=== PATIENT | female | born 1955 | race Hispanic/Latino ===

== ENCOUNTER 2019-08-16 20:53 | Emergency (ER) | payer OTHER ==
[2019-08-16] MEDS ORDERED: TETANUS & DIPHTHERIA TOX,ADULT 0.5 ML VIAL ONE (21:39)
[2019-08-16 22:01] LABS: Absolute Lymphocytes (CBC) 4.3 K/uL (0.7-4.9); Basophils % 0.8 % (0-1.3); Hematocrit 35.4 % (36.0-45.0); Lymphocytes % 42.7 % (15.3-44.8); MPV 9.6 fL (7.6-11.3); RBC Red Blood Cell Count 3.95 M/uL (3.86-4.86)
[2019-08-16 22:03] LABS: Protime INR 0.95
[2019-08-16 22:15] LABS: ALT/SGPT 22 U/L (12-78); AST/SGOT 18 U/L (15-37); Albumin 3.7 g/dL (3.4-5.0); Alkaline Phosphatase 86 U/L (45-117); BUN Blood Urea Nitrogen 20 mg/dL (7-18); Bicarbonate 24 mmol/L (21-32); Bilirubin Direct < 0.1 mg/dL (0-0.2); Bilirubin Total 0.4 mg/dL (0.2-1.0); Glucose Level 97 mg/dL (74-106); NT PRO-BNP 78 pg/mL (<125); Potassium 3.7 mmol/L (3.5-5.1); Protein, Total 7.9 g/dL (6.4-8.2); Sodium Level 136 mmol/L (136-145); Troponin (Emerg Dept Use Only) < 0.02 ng/mL (0.0-0.045)
[2019-08-16] MEDS ORDERED: MORPHINE 4 MG/ML SYR ONE (23:00)
[2019-08-16] MEDS ORDERED: ONDANSETRON 4 MG/2 ML VIAL ONE (23:00)
[2019-08-17] MEDS ORDERED: ONDANSETRON 4 MG/2 ML VIAL ONE (00:11)
[2019-08-17] MEDS ORDERED: MORPHINE 4 MG/ML SYR ONE (00:11)
[2019-08-17] MEDS ORDERED: FAMOTIDINE 20 MG/2 ML VIAL IV ONE (00:17)
--- NOTE | 2019-08-17 02:49 | ER ---
Nurse's Notes [facility] Name: Brandi Chavez Age: 64 yrs Sex: Female : 1955 Arrival Date: 08/16/2019 Time: 20:56 Bed 7 Private MD: Nereida Peck K Diagnosis: Bitten by nonvenomous snake Presentation: 08/15 21:14 Chief complaint: Patient states: she was bit by a snake in her garage approx 2009 bb tonight now her right lateral ankle is swollen, bruised and painful. Coronavirus screen: Proceed with normal triage. Ebola Screen: No symptoms or risks identified at this time. Initial Sepsis Screen: Does the patient meet any 2 criteria? No. Patient's initial sepsis screen is negative. Does the patient have a suspected source of infection? No. Patient's initial sepsis screen is negative. Risk Assessment: Do you want to hurt yourself or someone else? Patient reports no desire to harm self or others. Onset of symptoms was August 16, 2019. 21:14 Method Of Arrival: Ambulatory bb 21:14 Acuity: CHERIRE 2 bb 21:21 Care prior to arrival: None. Mechanism of Injury: snake bite. Trauma event details: bb Injury occurred in the [facility], Injury occurred: at home. Injury occurred: August 16, 2019 Injury occurred at: 20:10. Triage Assessment: 21:20 Bite description: bite sustained to right ankle by a snake, animal information: bb vaccination(s) is not applicable. Trauma Activation: Alert Physician: ED Physician; Name: Dr Burnett; Notified At: 21:15; Arrived At: 21:20 Physician: General Surgeon; Name: ; Notified At: 21:15; Arrived At: Physician: Radiology; Name: ; Notified At: 21:15; Arrived At: Physician: Respiratory; Name: ; Notified At: 21:15; Arrived At: Physician: Lab; Name: ; Notified At: 21:15; Arrived At: Historical: - Allergies: 21:20 No Known Allergies; bb - Home Meds: 21:20 None [Active]; bb - PMHx: 21:20 Meniere's Disease; Celiac disease; bb - PSHx: 21:20 Cholecystectomy; Ectopic ; bb - Immunization history:: Adult Immunizations up to date. - Social history:: Smoking status: Patient denies any tobacco usage or history of. - Immunization history: Last tetanus immunization: unknown. Screenin:21 Abuse screen: Denies threats or abuse. Tuberculosis screening: No symptoms or risk bb factors identified. 21:25 Nutritional screening: No deficits noted. Fall Risk None identified. bb Primary Survey: 21:21 NO uncontrolled hemorrhage observed. A: The patient is alert. Airway: patent. bb Breathing/Chest: Respiratory pattern: regular, Respiratory effort: spontaneous, unlabored. Circulation: Heart tones present. Disability Alert. Exposure/Environment: All clothing and personal items were removed. Forensic evidence collection is not deemed to be indicated at this time. Items placed in patient belonging bag. 22:30 Reassessment Breathing/Chest Respiratory pattern Regular Respiratory effort Spontaneous lp1 Unlabored. Secondary Survey: 21:40 HEENT: No deficits noted. Gastrointestinal: No deficits noted. : No signs and/or lp1 symptoms were reported regarding the genitourinary system. Musculoskeletal: Circulation, motion, and sensation intact. Capillary refill < 3 seconds, in right toes. Swelling present in right ankle. Assessment: 21:45 General: Appears in no apparent distress. Behavior is calm, cooperative, appropriate lp1 for age. Pain: Complains of pain in right ankle Pain currently is 6 out of 10 on a pain scale. Quality of pain is described as aching. Neuro: Level of Consciousness is awake, alert, obeys commands, Oriented to person, place, time, situation. EENT: No signs and/or symptoms were reported regarding the EENT system. Cardiovascular: Patient's skin is warm and dry. Pulses are palpable in right dorsalis pedis artery. Respiratory: Respiratory effort is even, unlabored. GI: No signs and/or symptoms were reported involving the gastrointestinal system. : No signs and/or symptoms were reported regarding the genitourinary system. Derm: Skin is healthy with good turgor, Skin is normal, Wound noted Other: Small puncture wound to lateral right ankle with bruising and swelling below site; Site marked with skin marker at this time Bruising that is dark purple, on right ankle. Musculoskeletal: Range of motion: intact in all extremities. 22:20 Reassessment: Patient appears in no apparent distress at this time. Patient is alert, lp1 oriented x 3, equal unlabored respirations, skin warm/dry/pink. No change in site at this time; Provider at bedside to discuss results and continued monitoring, patient demonstrates understanding. 08/16 00:00 Reassessment: Assisted patient to bathroom at this time; States epigastric burning, lp1 nausea; patient vomited while in bathroom; Provider notified, verbal order to administer Zofran 4 mg IV. 00:10 Reassessment: Verbal order from Provider for Pepcid 20 mg IV. lp1 00:10 Reassessment: Patient sitting up in stretcher for comfort, tolerating water; Site to lp1 right ankle unchanged from marked borders, continuing to monitor; Patient denies need for medication for pain at this time. 00:10 Cardiovascular: Pulses are palpable in right dorsalis pedis artery. lp1 01:00 Reassessment: Patient appears in no apparent distress at this time. No changes from lp1 previously documented assessment. 02:00 Reassessment: Patient is alert, oriented x 3, equal unlabored respirations, skin lp1 warm/dry/pink. Patient states nausea relief at this time; no further needs; No change to site at right foot, bruising within marked border. 03:10 Reassessment: Patient appears in no apparent distress at this time. No changes from jv1 previously documented assessment. Patient and/or family updated on plan of care and expected duration. Pain level reassessed. Patient is alert, oriented x 3, equal unlabored respirations, skin warm/dry/pink. Patient states feeling better. Vital Signs: 08/15 21:14 BP 136 / 88; Pulse 77; Resp 16 S; Temp 98.3(O); Pulse Ox 99% on R/A; Weight 58.06 kg bb (R); Height 5 ft. 2 in. (157.48 cm) (R); Pain 5/10; 22:00 BP 122 / 67; Pulse 72; Resp 20; Pulse Ox 100% on R/A; lp1 22:30 BP 137 / 64; Pulse 73; Resp 16; Pulse Ox 100% on R/A; lp1 23:00 BP 125 / 61; Pulse 72; Resp 16; Pulse Ox 98% on R/A; lp1 23:45 BP 124 / 65; Pulse 89; Resp 18; Pulse Ox 100% on R/A; lp1 08/16 01:00 BP 100 / 53; Pulse 76; Resp 16; Pulse Ox 98% on R/A; lp1 02:00 BP 106 / 60; Pulse 76; Resp 18; Temp 98; Pulse Ox 100% ; jv1 03:10 BP 112 / 56; Pulse 76; Resp 18; Temp 97.8; Pulse Ox 100% ; jv1 08/15 21:14 Body Mass Index 23.41 (58.06 kg, 157.48 cm) bb Thompson Coma Score: 08/15 21:21 Eye Response: spontaneous(4). Verbal Response: oriented(5). Motor Response: obeys bb commands(6). Total: 15. Trauma Score (Adult): 21:21 Eye Response: spontaneous(1); Verbal Response: oriented(1); Motor Response: obeys bb commands(2); Systolic BP: > 89 mm Hg(4); Respiratory Rate: 10 to 29 per min(4); Susan Score: 15; Trauma Score: 12 ED Course: 20:56 Patient arrived in ED. mr 20:56 Nereida Peck MD is Private Physician. mr 21:17 Triage completed. bb 21:17 Felipe Ponce PA is PHCP. [facility] 21:17 Shankar uBrnett MD is Attending Physician. [facility] 21:20 Arm band placed on Patient placed in an exam room, on a stretcher, on pulse oximetry. bb 21:21 Patient has correct armband on for positive identification. Bed in low position. Call bb light in reach. Side rails up X 1. 21:21 Patient maintains SpO2 saturation greater than 95% on room air. bb 21:25 Thermoregulation: warm blanket given to patient. bb 21:30 Inserted saline lock: 20 gauge in right antecubital area, using aseptic technique. ds4 Blood collected. 21:40 Clari Maxwell RN is Primary Nurse. lp1 08/16 02:15 Report given to JASIEL Meza. lp1 02:20 No provider procedures requiring assistance completed. lp1 03:16 IV discontinued, intact, bleeding controlled, No redness/swelling at site. Pressure jv1 dressing applied. 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 Exp: bb 06/22/2021. Lot #: [id number]. } Route: IM; Site: left deltoid; 22:30 Follow up: Response: No adverse reaction lp1 23:02 Drug: morphine 4 mg Route: IVP; Site: right antecubital; bb 23:45 Follow up: Response: Pain is decreased; RASS: Alert and Calm (0) lp1 23:02 Drug: Zofran (Ondansetron) 4 mg Route: IVP; Site: right antecubital; bb 23:45 Follow up: Response: No adverse reaction lp1 08/16 00:08 Drug: Zofran (Ondansetron) 4 mg Route: IVP; Site: right antecubital; lp1 01:00 Follow up: Response: Marked relief of symptoms; Nausea is decreased lp1 00:17 Drug: Pepcid 20 mg Route: IVP; Site: right antecubital; lp1 01:00 Follow up: Response: Marked relief of symptoms lp1 Intake: 08/15 21:21 PO: 0ml; Total: 0ml. bb Outcome: 08/16 02:49 Discharge ordered by . ma2 03:13 Discharged to home via wheelchair. jv1 03:13 Condition: good 03:13 Discharge instructions given to patient, Instructed on discharge instructions, follow up and referral plans. medication usage, Demonstrated understanding of instructions, follow-up care, medications, Prescriptions given X 1. 03:17 Patient's length of stay was not longer than 2 hours. jv1 03:17 Patient left the ED. jv1 Signatures: Felipe Ponce PA PA jmm Rivera, Mary mr Ballard, Brenda, RN RN bb Clari Maxwell RN RN lp1 Liu Cruz ds4 Shankar Burnett MD MD ma2 Domenica Mcgregor, JASIEL RN jv1 Corrections: (The following items were deleted from the chart) 00:27 00:10 Reassessment: Patient sitting up in stretcher for comfort, tolerating water; Site lp1 to right ankle unchanged from marked borders, continuing to monitor; Patient denies need for medication for pain at this time lp1 02:21 08/15 21:45 Derm: Wound noted Other: Small puncture wound to lateral right ankle with lp1 bruising and swelling below site; Site marked with skin marker at this time Bruising that is dark purple, on right ankle lp1
--- NOTE | 2019-08-17 02:49 | EDPHYS ---
Physician Documentation [facility] Name: Brandi Chavez Age: 64 yrs Sex: Female : 1955 Arrival Date: 08/16/2019 Time: 20:56 Bed 7 Private MD: Nereida Peck K ED Physician Shankar Burnett HPI: 08/15 21:23 This 64 yrs old Female presents to ER via Ambulatory with complaints of Snake jmm bite. 21:23 The patient was bitten on the right foot, by a snake, Onset: The symptoms/episode jmm began/occurred acutely. Animal information: is unknown, Patient/Caregiver unable to describe the snake. This is a 64 year old female with a history of mneieres that presents to the ED with complaints of right foot swelling following a snake bite which just occurred approx 1 hour ago. patient states this occurred when she walked in the garage. . Historical: - Allergies: 21:20 No Known Allergies; bb - Home Meds: 21:20 None [Active]; bb - PMHx: 21:20 Meniere's Disease; Celiac disease; bb - PSHx: 21:20 Cholecystectomy; Ectopic ; bb - Immunization history:: Adult Immunizations up to date. - Social history:: Smoking status: Patient denies any tobacco usage or history of. - Immunization history: Last tetanus immunization: unknown. ROS: 21:23 Constitutional: Negative for fever, chills, and weight loss, Cardiovascular: Negative jmm for chest pain, palpitations, and edema, Respiratory: Negative for shortness of breath, cough, wheezing, and pleuritic chest pain. 21:23 MS/extremity: Positive for pain. 21:23 All other systems are negative. Exam: 21:23 Constitutional: This is a well developed, well nourished patient who is awake, alert, jmm and in no acute distress. Head/Face: atraumatic. Eyes: EOMI, no conjunctival erythema appreciated ENT: Moist Mucus Membranes Neck: Trachea midline, Supple Chest/axilla: Normal chest wall appearance and motion. Cardiovascular: Regular rate and rhythm. No edema appreciated Respiratory: Normal respirations, no respiratory distress appreciated Abdomen/GI: Non distended, soft Back: Normal ROM 21:23 Skin: ecchymosis noted ot the right lateral foot. 21:23 Neuro: Orientation: is normal, Mentation: is normal, Memory: is normal. 21:23 Psych: Behavior/mood is pleasant, cooperative. 08/16 02:47 MS/ Extremity: swelling localized to right lateral ankle, Pulses equal, no cyanosis. ma2 Neurovascular intact. Full, normal range of motion. Neuro: Awake and alert, GCS 15, oriented to person, place, time, and situation. Cranial nerves II-XII grossly intact. Motor strength 5/5 in all extremities. Sensory grossly intact. Cerebellar exam normal. Normal gait. Vital Signs: 08/15 21:14 BP 136 / 88; Pulse 77; Resp 16 S; Temp 98.3(O); Pulse Ox 99% on R/A; Weight 58.06 kg bb (R); Height 5 ft. 2 in. (157.48 cm) (R); Pain 5/10; 22:00 BP 122 / 67; Pulse 72; Resp 20; Pulse Ox 100% on R/A; lp1 22:30 BP 137 / 64; Pulse 73; Resp 16; Pulse Ox 100% on R/A; lp1 23:00 BP 125 / 61; Pulse 72; Resp 16; Pulse Ox 98% on R/A; lp1 23:45 BP 124 / 65; Pulse 89; Resp 18; Pulse Ox 100% on R/A; lp1 04 01:00 BP 100 / 53; Pulse 76; Resp 16; Pulse Ox 98% on R/A; lp1 02:00 BP 106 / 60; Pulse 76; Resp 18; Temp 98; Pulse Ox 100% ; jv1 03:10 BP 112 / 56; Pulse 76; Resp 18; Temp 97.8; Pulse Ox 100% ; jv1 08/15 21:14 Body Mass Index 23.41 (58.06 kg, 157.48 cm) bb Susan Coma Score: 08/15 21:21 Eye Response: spontaneous(4). Verbal Response: oriented(5). Motor Response: obeys bb commands(6). Total: 15. Trauma Score (Adult): 21:21 Eye Response: spontaneous(1); Verbal Response: oriented(1); Motor Response: obeys bb commands(2); Systolic BP: > 89 mm Hg(4); Respiratory Rate: 10 to 29 per min(4); [place] Score: 15; Trauma Score: 12 MDM: 21:21 Patient medically screened. [facility] 08/16 02:05 Transition of care: After a detail discussion of the patient's case, care is [facility] transferred to Shankar Burnett MD. 02:47 Differential diagnosis: she was observed in er for 6 hrs, swelling is stable no, ma2 worsening, vs wnl, lab wnl. Data reviewed: vital signs, nurses notes, EMS record. Counseling: I had a detailed discussion with the patient and/or guardian regarding: the historical points, exam findings, and any diagnostic results supporting the discharge/admit diagnosis, the presence of at least one elevated blood pressure reading (>120/80) during this emergency department visit, radiology results, the need for outpatient follow up. Response to treatment: There is no appreciated change of the patient's symptoms at this time, the patient's symptoms have mildly improved after treatment. 02:50 ED course: no drug seeking per supervisor [facility]. ut2 08/15 21:22 Order name: Basic Metabolic Panel; Complete Time: 22:27 [facility] 08/15 21:22 Order name: CBC with Diff; Complete Time: 22: [facility] 08/15 21:22 Order name: LFT's; Complete Time: 22:27 [facility] 08/15 21:22 Order name: Magnesium; Complete Time: 22: [facility] 08/15 21:22 Order name: NT PRO-BNP; Complete Time: 22:27 [facility] 08/15 21:22 Order name: PT-INR; Complete Time: 22: [facility] 08/15 21:22 Order name: Troponin (emerg Dept Use Only); Complete Time: 22:27 [facility] 08/15 21:28 Order name: Fibrinogen; Complete Time: 22:27 [facility] 08/15 21:28 Order name: D-Dimer; Complete Time: 22:27 [facility] 08/15 21:22 Order name: EKG; Complete Time: 21: [facility] 08/15 21:22 Order name: Cardiac monitoring; Complete Time: 22:12 [facility] 08/15 21:22 Order name: EKG - Nurse/Tech; Complete Time: 22:12 [facility] 08/15 21:22 Order name: IV Saline Lock; Complete Time: 22:12 [facility] 08/15 21:22 Order name: Labs collected and sent; Complete Time: 22:12 [facility] 08/15 21:22 Order name: O2 Per Protocol; Complete Time: 21:33 [facility] 08/15 21:22 Order name: O2 Sat Monitoring; Complete Time: 21:33 [facility] Administered Medications: 08/15 21:39 Drug: Tetanus-Diphtheria Toxoid Adult 0.5 ml {Import Specialist: [employer]. Exp: bb 06/22/2021. Lot #: [id number]. } Route: IM; Site: left deltoid; 22:30 Follow up: Response: No adverse reaction lp1 23:02 Drug: morphine 4 mg Route: IVP; Site: right antecubital; bb 23:45 Follow up: Response: Pain is decreased; RASS: Alert and Calm (0) lp1 23:02 Drug: Zofran (Ondansetron) 4 mg Route: IVP; Site: right antecubital; bb 23:45 Follow up: Response: No adverse reaction lp1 08/16 00:08 Drug: Zofran (Ondansetron) 4 mg Route: IVP; Site: right antecubital; lp1 01:00 Follow up: Response: Marked relief of symptoms; Nausea is decreased lp1 00:17 Drug: Pepcid 20 mg Route: IVP; Site: right antecubital; lp1 01:00 Follow up: Response: Marked relief of symptoms lp1 Disposition: 02:50 Co-signature as Attending Physician, Shankar Burnett MD. Chart complete. ut2 Disposition: 08/17/19 02:49 Discharged to Home. Impression: Bitten by nonvenomous snake. - Condition is Stable. - Discharge Instructions: Snake Bite. - Prescriptions for Tylenol- Codeine #3 300-30 mg Oral Tablet - take 2 tablet by ORAL route every 6 hours As needed; 30 tablet. - Medication Reconciliation Form, Thank You Letter, Antibiotic Education, Prescription Opioid Use form. - Follow up: Private Physician; When: Tomorrow; Reason: Continuance of care. Signatures: Dispatcher [employer] EDFelipe Giles PA PA jmm Ballard, Brenda, RN RN bb Clari Maxwell RN RN lp1 Shankar Burnett MD MD ma2 Domenica Mcgregor RN RN jv1 Corrections: (The following items were deleted from the chart) 03:17 02:49 08/17/2019 02:49 Discharged to Home. Impression: Bitten by nonvenomous snake. jv1 Condition is Stable. Forms are Medication Reconciliation Form, Thank You Letter, Antibiotic Education, Prescription Opioid Use. Follow up: Private Physician; When: Tomorrow; Reason: Continuance of care. ma2
[2019-08-17 03:32] VITALS: O2SAT 100
[2019-08-17 03:34] VITALS: BP 112/56; TEMP 97.8
--- NOTE | 2019-08-17 07:35 | EKG ---
Test Date: 2019-08-16 Test Time: 22:05:38 Cnc Technician: LILY MEASUREMENT RESULTS: Intervals: Rate: 69 LA: 196 QRSD: 74 QT: 394 QTc: 422 [place]: P: 72 LA: 196 QRS: 41 T: 64 INTERPRETIVE STATEMENTS: Normal sinus rhythm Nonspecific T wave abnormality Abnormal ECG No previous ECG available for comparison Electronically Signed On 08-17-19 07:34:39 CDT by Teddy Morton
== END 2019-08-17 03:17 | disposition home or self-care (01) ==
LOC: ER 20:53
DX: T63.001A Toxic effect of unspecified snake venom, accidental (unintentional), initial encounter (principal); Y92.008 Other place in unspecified non-institutional (private) residence as the place of occurrence of the external cause; Z23 Encounter for immunization; H81.09 Meniere's disease, unspecified ear
CPT/HCPCS: 93005; 85025; 80048; 36415; 85384; 83735; 85610; 85379; 80076; 84484; 83880; 90471; 90714; 96375; 96374; 99284; J2405 ×2

== ENCOUNTER 2019-08-17 20:28 | Emergency (ER) | payer OTHER ==
[2019-08-17] MEDS ORDERED: FENTANYL CITR 100 MCG/2 ML ONE (20:59)
[2019-08-17] MEDS ORDERED: ONDANSETRON 4 MG/2 ML VIAL ONE (21:00)
--- NOTE | 2019-08-17 21:11 | EDPHYS ---
Physician Documentation [facility] Name: Brandi Chavez Age: 64 yrs Sex: Female : 1955 Arrival Date: 08/17/2019 Time: 20:30 Bed 26 Private MD: ED Physician Sky Salazar HPI: 08/16 20:40 This 64 yrs old Female presents to ER via Ambulatory with complaints of Leg jmm Swelling. 20:40 The patient presents with pain, that is acute, swelling. Onset: The symptoms/episode jmm began/occurred acutely, 1 day(s) ago. Modifying factors: The symptoms are alleviated by nothing. the symptoms are aggravated by nothing. Associated signs and symptoms: Pertinent positives: swelling, Pertinent negatives fever. This is a 64 year old female that presents to the ED with complaints of right leg swelling and pain beginning after a snake bite which occurred last night. Patient was initially evaluated in the ED. Patient was discharged with swelling localized to the foot. Patient states the leg began to swell to the level of the thigh. . Historical: - Allergies: 20:50 No Known Allergies; bb - Home Meds: 20:50 None [Active]; bb - PMHx: 20:50 Celiac Disease; Meniere's disease; bb - PSHx: 20:50 Cholecystectomy; Ectopic ; bb - Immunization history:: Adult Immunizations up to date, Last tetanus immunization: up to date. - Social history:: Smoking status: Patient denies any tobacco usage or history of. ROS: 20:40 Constitutional: Negative for fever, chills, and weight loss, Cardiovascular: Negative jmm for chest pain, palpitations, and edema, Respiratory: Negative for shortness of breath, cough, wheezing, and pleuritic chest pain. 20:40 MS/extremity: Positive for pain, swelling. 20:40 All other systems are negative. Exam: 20:40 Constitutional: This is a well developed, well nourished patient who is awake, alert, jmm and in no acute distress. Head/Face: atraumatic. Eyes: EOMI, no conjunctival erythema appreciated ENT: Moist Mucus Membranes Neck: Trachea midline, Supple Chest/axilla: Normal chest wall appearance and motion. Cardiovascular: Regular rate and rhythm. No edema appreciated Respiratory: Normal respirations, no respiratory distress appreciated Abdomen/GI: Non distended, soft Back: Normal ROM 20:40 Musculoskeletal/extremity: swelling noted to the right thigh, lower leg, ankle and foot, compartments are soft, full dorsalis pulse, NVI. 20:40 Skin: ecchymosis noted to the dorsum of the right foot. 20:40 Neuro: Orientation: is normal, Mentation: is normal, Memory: is normal. 20:40 Psych: Behavior/mood is pleasant, cooperative. Vital Signs: 20:45 BP 95 / 60; Pulse 94; Resp 18; Pulse Ox 98% on R/A; rv 20:47 BP 95 / 57; Pulse 96; Resp 16 S; Temp 98(O); Pulse Ox 98% on R/A; Weight 58.06 kg (R); bb Height 5 ft. 2 in. (157.48 cm) (R); Pain 5/10; 21:00 BP 93 / 65; Pulse 96; Resp 16; Pulse Ox 99% on R/A; rv 21:15 BP 96 / 61; Pulse 90; Resp 16; Pulse Ox 97% on R/A; rv 21:30 BP 102 / 60; Pulse 77; Resp 16; Pulse Ox 99% on R/A; rv 21:45 BP 105 / 58; Pulse 82; Resp 16; Temp 97.8(O); Pulse Ox 99% ; Pain 0/10; rv 21:59 Pain 0/10; rv 22:00 BP 104 / 56; Pulse 75; Resp 15; Pulse Ox 98% ; rv 22:30 BP 108 / 61; Pulse 76; Resp 16; Pulse Ox 99% on R/A; rv 23:00 BP 109 / 63; Pulse 78; Resp 16; Pulse Ox 99% on R/A; rv 20:47 Body Mass Index 23.41 (58.06 kg, 157.48 cm) bb MDM: 20:40 Patient medically screened. [facility] 21:10 Data reviewed: vital signs, nurses notes. Counseling: I had a detailed discussion with jose luis the patient and/or guardian regarding: the historical points, exam findings, and any diagnostic results supporting the discharge/admit diagnosis, the need to transfer to another facility. ED course: Due to continued swelling. Will transfer for snake bite care. I discussed the patient with Dr. Kan whom accepted transfer to [facility]. 08/16 20:41 Order name: Basic Metabolic Panel; Complete Time: 22:11 [facility] 08/16 20:41 Order name: CBC with Diff; Complete Time: 22:00 [facility] 08/16 20:41 Order name: LFT's; Complete Time: 22:11 [facility] 08/16 20:41 Order name: Magnesium; Complete Time: 22:11 [facility] 08/16 20:41 Order name: NT PRO-BNP; Complete Time: 22:11 [facility] 08/16 20:41 Order name: PT-INR; Complete Time: 22:11 [facility] 08/16 20:41 Order name: Troponin (emerg Dept Use Only); Complete Time: 22:11 [facility] 08/16 20:41 Order name: D-Dimer; Complete Time: 22:11 [facility] 08/16 20:41 Order name: Fibrinogen; Complete Time: 22:11 [facility] 08/16 22:39 Order name: US Extremity Venous Unilateral Ltd [facility] 08/16 20:41 Order name: EKG; Complete Time: 20:43 [facility] 08/16 20:41 Order name: Cardiac monitoring; Complete Time: 21:16 [facility] 08/16 20:41 Order name: EKG - Nurse/Tech; Complete Time: 21:16 [facility] 08/16 20:41 Order name: IV Saline Lock; Complete Time: 21:16 [facility] 08/16 20:41 Order name: Labs collected and sent; Complete Time: 21:16 [facility] 08/16 20:41 Order name: O2 Per Protocol; Complete Time: 21:16 [facility] 08/16 20:41 Order name: O2 Sat Monitoring; Complete Time: 21:16 jm Administered Medications: 21:16 Drug: Zofran (Ondansetron) 4 mg Route: IVP; Site: left antecubital; rv 21:59 Follow up: Response: No adverse reaction rv 21:17 Drug: fentaNYL (PF) 50 mcg Route: IVP; Site: left antecubital; rv 21:59 Follow up: Pain 0/10 Adult; Response: No adverse reaction; Marked relief of symptoms; rv Pain is decreased; RASS: Alert and Calm (0) 21:19 Drug: NS 0.9% 1000 ml Route: IV; Rate: 1 bolus; Site: left antecubital; rv 23:11 Follow up: IV Status: Completed infusion rv 21:37 Drug: CroFab 4 vials Route: IV; Rate: calculated rate; Site: left antecubital; rv 21:59 Follow up: Response: No adverse reaction rv 22:45 Follow up: IV Status: Completed infusion; IV Intake: 250ml rv 23:12 Drug: CroFab 4 vials Route: IV; Rate: calculated rate; Site: left antecubital; rv 23:13 Follow up: IV Status: Infusion continued upon transfer rv 23:18 CANCELLED (Duplicate Order): CroFab 4 vials IV at calculated rate once; may repeat at rv >=1 hour intervals until initial control of symptoms Disposition: 08/17/19 21:11 Transfer ordered to [facility]. Diagnosis are Edema, unspecified, Toxic effect of snake venom. - Reason for transfer: Higher level of care. - Accepting physician is Dr. Kan. - Condition is Stable. - Problem is new. - Symptoms have worsened. Addendum: 08/20/2019 07:39 Co-signature as Attending Physician, Sky Salazar MD I agree with the assessment and c soto plan of care. Signatures: Dispatcher [employer] EDMS Sky Salazar MD MD cha Mickail, Joel, PA PA Nerissa Rainey, RN RN bb Anthony Mcgregor, RN RN rv Corrections: (The following items were deleted from the chart) 08/16 23:17 21:11 08/17/2019 21:11 Transfer ordered to [facility]. Diagnosis is Edema, rv unspecified; Toxic effect of snake venom. Reason for transfer: Higher level of care. Accepting physician is Dr. Kan. Condition is Stable. Problem is new. Symptoms have worsened. jose luis
--- NOTE | 2019-08-17 21:11 | ER ---
Nurse's Notes [facility] Name: Brandi Chavez Age: 64 yrs Sex: Female : 1955 Arrival Date: 08/17/2019 Time: 20:30 Bed 26 Private MD: Diagnosis: Edema, unspecified;Toxic effect of snake venom Presentation: 08/16 20:47 Chief complaint: Patient states: she was seen here yesterday for snake-bite to right bb lateral ankle and discharged home but today her leg is swollen up past her thigh and is painful. Coronavirus screen: Proceed with normal triage. Ebola Screen: No symptoms or risks identified at this time. Initial Sepsis Screen: Does the patient meet any 2 criteria? No. Patient's initial sepsis screen is negative. Does the patient have a suspected source of infection? No. Patient's initial sepsis screen is negative. Risk Assessment: Do you want to hurt yourself or someone else? Patient reports no desire to harm self or others. Onset of symptoms was August 16, 2019. 20:47 Method Of Arrival: Ambulatory bb 20:47 Acuity: CHERRIE 2 bb Historical: - Allergies: 20:50 No Known Allergies; bb - Home Meds: 20:50 None [Active]; bb - PMHx: 20:50 Celiac Disease; Meniere's disease; bb - PSHx: 20:50 Cholecystectomy; Ectopic ; bb - Immunization history:: Adult Immunizations up to date, Last tetanus immunization: up to date. - Social history:: Smoking status: Patient denies any tobacco usage or history of. Screenin:15 Abuse screen: Denies threats or abuse. Denies injuries from another. Nutritional rv screening: No deficits noted. Tuberculosis screening: No symptoms or risk factors identified. Fall Risk None identified. Assessment: 21:00 General: Appears in no apparent distress. Behavior is calm, cooperative. rv 21:00 Pain: Complains of pain in right leg Pain currently is 5 out of 10 on a pain scale. rv Neuro: Level of Consciousness is awake, alert, obeys commands, Oriented to person, place, time, situation. Cardiovascular: Patient's skin is warm and dry. Rhythm is regular. Respiratory: Airway is patent Respiratory effort is even, unlabored. Derm: Bruising that is dark purple, on lateral aspect of right foot. Musculoskeletal: Swelling present in right leg. 23:13 Reassessment: PATIENT'S VITAL SIGNS ARE STABLE. COMPLAINING OF PAIN BUT REFUSED PAIN rv MEDICATION PRIOR TO TRANSFER. SECOND BAG OF CROFAB STARTED BEFORE TRANSFER. ULTRASOUND DONE AT BEDSIDE, NEGATIVE FOR DVT. GCS 15 WITH IV INFUSING WELL. Reassessment: SHOW NO SIGNS OF REACTION FROM THE CROFAB. Vital Signs: 20:45 BP 95 / 60; Pulse 94; Resp 18; Pulse Ox 98% on R/A; rv 20:47 BP 95 / 57; Pulse 96; Resp 16 S; Temp 98(O); Pulse Ox 98% on R/A; Weight 58.06 kg (R); bb Height 5 ft. 2 in. (157.48 cm) (R); Pain 5/10; 21:00 BP 93 / 65; Pulse 96; Resp 16; Pulse Ox 99% on R/A; rv 21:15 BP 96 / 61; Pulse 90; Resp 16; Pulse Ox 97% on R/A; rv 21:30 BP 102 / 60; Pulse 77; Resp 16; Pulse Ox 99% on R/A; rv 21:45 BP 105 / 58; Pulse 82; Resp 16; Temp 97.8(O); Pulse Ox 99% ; Pain 0/10; rv 21:59 Pain 0/10; rv 22:00 BP 104 / 56; Pulse 75; Resp 15; Pulse Ox 98% ; rv 22:30 BP 108 / 61; Pulse 76; Resp 16; Pulse Ox 99% on R/A; rv 23:00 BP 109 / 63; Pulse 78; Resp 16; Pulse Ox 99% on R/A; rv 20:47 Body Mass Index 23.41 (58.06 kg, 157.48 cm) bb ED Course: 20:30 Patient arrived in ED. ds1 20:40 Felipe Ponce PA is PHCP. jmm 20:40 Sky Salazar MD is Attending Physician. jmm 20:50 Triage completed. bb 20:50 Anthony Mcgregor, JASIEL is Primary Nurse. rv 20:50 Arm band placed on Patient placed in an exam room, on a stretcher, on pulse oximetry. bb 21:00 Patient has correct armband on for positive identification. Call light in reach. Side rv rails up X 1. 21:00 inspector toys on. Pulse ox on. NIBP on. rv 21:15 Inserted saline lock: 20 gauge in left antecubital area, using aseptic technique. Blood rv collected. 21:15 Initial lab(s) drawn, by me, sent to lab. rv 23:15 No provider procedures requiring assistance completed. IV is patent, with fluids rv infusing freely, with good blood return, Patient transferred, IV remains in place. 23:19 US Extremity Venous Unilateral Ltd In Process Unspecified. EDMS Administered Medications: 21:16 Drug: Zofran (Ondansetron) 4 mg Route: IVP; Site: left antecubital; rv 21:59 Follow up: Response: No adverse reaction rv 21:17 Drug: fentaNYL (PF) 50 mcg Route: IVP; Site: left antecubital; rv 21:59 Follow up: Pain 0/10 Adult; Response: No adverse reaction; Marked relief of symptoms; rv Pain is decreased; RASS: Alert and Calm (0) 21:19 Drug: NS 0.9% 1000 ml Route: IV; Rate: 1 bolus; Site: left antecubital; rv 23:11 Follow up: IV Status: Completed infusion rv 21:37 Drug: CroFab 4 vials Route: IV; Rate: calculated rate; Site: left antecubital; rv 21:59 Follow up: Response: No adverse reaction rv 22:45 Follow up: IV Status: Completed infusion; IV Intake: 250ml rv 23:12 Drug: CroFab 4 vials Route: IV; Rate: calculated rate; Site: left antecubital; rv 23:13 Follow up: IV Status: Infusion continued upon transfer rv 23:18 CANCELLED (Duplicate Order): CroFab 4 vials IV at calculated rate once; may repeat at rv >=1 hour intervals until initial control of symptoms Intake: 22:45 IV: 250ml; Total: 250ml. rv Outcome: 21:11 ER care complete, transfer ordered by MD. caldera 23:16 Transferred by ground EMS to [facility], Transfer form completed. X-rays sent rv w/ patient. 23:16 Condition: stable 23:16 Discharge instructions given to patient, Instructed on the need for transfer, Demonstrated understanding of instructions. 23:17 Patient left the ED. rv Signatures: Dispatcher [employer] EDMS Felipe Ponce PA PA jmm Sanford, Demi dsNerissa Alcala, RN RN bb Anthony Mcgregor, RN RN rv
[2019-08-17] MEDS ORDERED: NA CHLORIDE 0.9% 1,000 ML ONE (21:23)
[2019-08-17 21:28] LABS: Absolute Lymphocytes (CBC) 1.9 K/uL (0.7-4.9); Basophils % 0.4 % (0-1.3); Hematocrit 43.6 % (36.0-45.0); MPV 9.7 fL (7.6-11.3); RBC Red Blood Cell Count 4.82 M/uL (3.86-4.86)
[2019-08-17] MEDS ORDERED: CROTALIDAE ANTIVENIM 1 GM VIAL IV ONE ×2 (21:33→22:46)
[2019-08-17] MEDS ORDERED: NA CHLORIDE 0.9% 250 ML ONE ×2 (21:33→22:46)
[2019-08-17 21:53] LABS: ALT/SGPT 703 U/L (12-78); Albumin 3.7 g/dL (3.4-5.0); Alkaline Phosphatase 167 U/L (45-117); BUN Blood Urea Nitrogen 14 mg/dL (7-18); Bicarbonate 26 mmol/L (21-32); Bilirubin Direct 0.9 mg/dL (0-0.2); Bilirubin Total 2.8 mg/dL (0.2-1.0); Glucose Level 111 mg/dL (74-106); Magnesium 2.1 mg/dL (1.8-2.4); NT PRO-BNP 76 pg/mL (<125); Potassium 3.8 mmol/L (3.5-5.1); Protein, Total 7.7 g/dL (6.4-8.2); Sodium Level 138 mmol/L (136-145); Troponin (Emerg Dept Use Only) < 0.02 ng/mL (0.0-0.045)
[2019-08-17 21:58] LABS: AST/SGOT 759 U/L (15-37); Protime INR 1.06
[2019-08-17 23:30] VITALS: TEMP 97.8
[2019-08-17 23:33] VITALS: O2SAT 99
[2019-08-17 23:35] VITALS: BP 109/63
--- NOTE | 2019-08-18 07:59 | EKG ---
Test Date: 2019-08-17 Test Time: 21:10:19 Barrel Endshake Adjuster: JOSÉ MIGUEL MEASUREMENT RESULTS: Intervals: Rate: 92 AZ: 146 QRSD: 72 QT: 344 QTc: 425 Vista: P: 67 AZ: 146 QRS: 48 T: 70 INTERPRETIVE STATEMENTS: Normal sinus rhythm Nonspecific T wave abnormality Abnormal ECG Compared to ECG 08/16/2019 22:05:38 No significant changes Electronically Signed On 08-18-19 07:58:31 CDT by Teddy Morton
--- NOTE | 2019-08-18 12:25 | RAD REPORT ---
EXAM DESCRIPTION: US - Extremity Venous Uni Ltd - 08/17/2019 11:19 pm CLINICAL HISTORY: 64 years Female SWELLING Extremity Venous Uni Ltd COMPARISON: None TECHNIQUE: Real-time and Doppler sonography of the deep venous system of the right lower extremity was performed . FINDINGS: No intraluminal thrombus is seen at any level. Satisfactory compressibility and augmentati on all levels. No popliteal cyst. IMPRESSION: Negative study. No sonographic evidence for deep venous thrombosis involving the right l ower extremity. Electronically signed by: Nereida Vuong MD 08/17/2019 11:37 PM CDT Due to temporary technical issues with the PACS/Fluency reporting system, reports are being signed by the in house radiologist as a courtesy to ensure prompt reporting. The interpreting radiologist is f ully responsible for the content of the report.
== END 2019-08-17 23:17 | disposition short-term general hospital (02) ==
LOC: ER 20:28
DX: R60.9 Edema, unspecified (principal); T63.001A Toxic effect of unspecified snake venom, accidental (unintentional), initial encounter; Y92.008 Other place in unspecified non-institutional (private) residence as the place of occurrence of the external cause; H81.09 Meniere's disease, unspecified ear
CPT/HCPCS: 96365; 96361; 93005; 85025; 80048; 36415; 85384; 83735; 85610; 85379; 80076; 84484; 83880; 93971; 96375; 99285; J0840 ×2; J3010; J7030 ×3; J2405

== ENCOUNTER 2023-04-18 09:19 | Day surgery (SDC) | payer OTHER ==
[2023-04-18] MEDS ORDERED: CEFAZOLIN SODIUM 1 GM/VIAL ONE (10:00)
[2023-04-18] MEDS ORDERED: Ringers Lactate 1,000 ML IV ONE (10:00)
--- NOTE | 2023-04-18 10:52 | RAD REPORT ---
EXAM DESCRIPTION: RAD - Chest Pa And Lat (2 Views) - 04/18/2023 10:18 am CLINICAL HISTORY: SDS RM 5. Hypertension COMPARISON: No comparisons TECHNIQUE: PA and lateral views of the chest were obtained. FINDINGS: The lungs are clear. Heart size is normal and central vasculature is within normal limits. No pleural effusion or pneumothorax seen. No acute bony finding noted. IMPRESSION: No acute cardiopulmonary process.
[2023-04-18 10:58] LABS: Absolute Lymphocytes (CBC) 3.1 K/uL (0.7-4.9); Hematocrit 37.3 % (36.0-45.0); Lymphocytes % 31.3 % (15.3-44.8); MPV 7.7 fL (7.6-11.3); Platelets 375 thou/uL (152-406); RBC Red Blood Cell Count 4.19 M/uL (3.86-4.86)
[2023-04-18] MEDS ORDERED: MIDAZOLAM HCL 2 MG/2 ML INJ ONE (11:01)
[2023-04-18] MEDS ORDERED: LIDOCAINE 2% MPF 5 ML VIAL ONE (11:01)
[2023-04-18] MEDS ORDERED: propofoL 200 MG/20 ML VIAL IV ONE (11:01)
[2023-04-18] MEDS ORDERED: ONDANSETRON 4 MG/2 ML VIAL ONE ×3 (11:01→12:56)
[2023-04-18] MEDS ORDERED: FENTANYL CITR 100 MCG/2 ML ONE (11:01)
[2023-04-18] MEDS ORDERED: HYDROMORPHONE HCL 1 MG/ML INJ ONE (11:05)
[2023-04-18 11:07] LABS: Protime INR 1.07
[2023-04-18 11:15] LABS: Potassium 3.7 mEq/L (3.5-5.1)
[2023-04-18] MEDS ORDERED: dexAMETHasone 10 MG/ML VIAL ONE (11:28)
[2023-04-18] MEDS ORDERED: EPHEDRINE SULF 50 MG/ML VIAL ONE (11:31)
--- NOTE | 2023-04-18 12:54 | P.BOP ---
Preoperative diagnosis: left patella fracture Postoperative diagnosis: same Primary procedure: ORIF left patella fracture Deckhand Engineer: NONE,NONE Estimated blood loss: 10 cc Specimen: none Findings: see dictation Anesthesia: General Complications: None Implants: 1.6 mm K-wire x 2, 20 gauge sternal wire Fluids & blood products: per anesthesia record; TT: 54 mins @ 300 mmHg Transferred to: Recovery Room Condition: Good
[2023-04-18] MEDS: HYDROMORPHONE HCL 1 MG/ML INJ ONE ×4 (12:55→13:10)
[2023-04-18] MEDS ORDERED: KETOROLAC 30 MG/ML INJ ONE (13:08)
[2023-04-18] MEDS ORDERED: METOCLOPRAMIDE 10 MG/2mL INJ ONE (13:21)
[2023-04-18] MEDS: FENTANYL CITR 100 MCG/2 ML ONE ×2 (13:25→13:30)
[2023-04-18] MEDS ORDERED: HYDROCODONE/APAP 5/325 MG TAB ONE (14:01)
--- NOTE | 2023-04-18 14:24 | RAD REPORT ---
EXAM DESCRIPTION: RAD - Knee Left 2 View - 04/18/2023 1:31 pm CLINICAL HISTORY: Patella surgery FINDINGS: Wires and pins affix a patellar fracture in good alignment.
[2023-04-18 15:22] VITALS: BP 133/66; TEMP 97.1; O2SAT 96
--- NOTE | 2023-04-18 15:24 | RAD REPORT ---
EXAM DESCRIPTION: RAD - Fluoroscopy <1 Hour - 04/18/2023 2:36 pm CLINICAL HISTORY: Left patella capital ORIF FINDINGS: Three fluoroscopic intraoperative spot image is submitted. Fluoroscopy time 0.2 minutes. Wires and pins affix a patellar fracture. Surgery performed by Dr. Zhu
--- NOTE | 2023-04-19 09:56 | OP ---
Date of Procedure: 04/18/2023 Surgeon: Frank Zhu MD Preoperative Diagnosis: Left patella fracture. Postoperative Diagnosis: Left patella fracture. Procedure Performed: Open reduction, internal fixation of left patella fracture. Anesthesia: General LMA. Fluids: Per Anesthesia record. Ebl: 10 cc. Complications: None. Implants: Two 1.6 mm K-wires with 20-gauge sternal wire. Indication For Procedure: Brandi is a 68-year-old female presented to my clinic with signs and sympto ms and x-ray findings consistent with a displaced patella fracture. I discussed with the patient at length risks and benefits associated with operative and nonoperative treatment measures. The patient was unable to demonstrate extensor mechanism to be intact, and elected to proceed with operative donal atment. Description Of Procedure: After informed consent was obtained, the patient was identified in the pre operative holding area. The left lower extremity was marked. The patient was then brought back to [facility] operating room, transferred to the operating table in supine fashion and placed under general anes thesia. Left lower extremity was then prepped and draped in usual sterile fashion. A time-out was i nitiated. The correct patient and procedure were confirmed and identified. The patient did receive preoperative prophylactic antibiotics. The left lower extremity was then exsanguinated using the Esm arch. The tourniquet was deflated to 300 mmHg. Approximately 10 cm longitudinal incision made cente red over the patella. Dissection was then taken down to the patella, soft tissue was elevated. The fracture was identified. A point reduction clamp was then placed at the superior and inferior aspect of the patella and fracture was well reduced. Fluoroscopy was then used to ensure proper reduction of the fracture. Two 1.6 mm K-wires were passed from a superior to inferior direction and again x-ra ys were taken to ensure maintenance of reduction. Using 20-gauge sternal wire figure-of-e ight was then created to create a tension band fixation of the patella. The ends were twisted on eac h other to create compression at the fracture site. Remaining end of the wires was then cut. The K- wires were malleted in to minimize soft tissue irritation. Fluoroscopy was then used to ensure prope r reduction and placement of hardware. The knee was then ranged with overall maintenance of reductio n. Wounds were then irrigated thoroughly with normal saline. Deep tissues were approximated using 0 Vicryl. Subcutaneous tissue was approximated using 2-0 Vicryl. Skin was approximated using 4-0 Mon ocryl. Sterile dressings were applied. The patient was placed in a knee immobilizer, awakened, and transferred to PACU in stable condition. Postoperative Plan: The patient may be weightbearing as tolerated in a knee immobilizer. She will f ollow up with me in 2 weeks for wound check. CV/MODL Voice ID: [id number] Report ID: [id number]
--- NOTE | 2023-04-19 13:45 | EKG ---
Test Date: 2023-04-18 Test Time: 10:26:54 Engine Monitor: DEVON MEASUREMENT RESULTS: Intervals: Rate: 82 VA: 162 QRSD: 70 QT: 342 QTc: 399 Jarrell: P: 56 VA: 162 QRS: 45 T: 92 INTERPRETIVE STATEMENTS: Normal sinus rhythm T wave abnormality, consider lateral ischemia Abnormal ECG Compared to ECG 08/17/2019 21:10:19 Possible ischemia now present T-wave abnormality still present Electronically Signed On 04-19-23 13:40:39 HOTEL VALET ATTENDANT by Francisco Arana
== END 2023-04-18 14:52 | disposition home or self-care (01) ==
LOC: OR 09:19
PROVIDERS: ATTEND Orthopaedic Surgery Sports Medicine
PROC: 0QSF04Z Reposition Left Patella with Internal Fixation Device, Open Approach (ICD-10-PCS; principal; 2023-04-18 11:00)
DX: S82.032A Displaced transverse fracture of left patella, initial encounter for closed fracture (principal); H81.09 Meniere's disease, unspecified ear; K90.0 Celiac disease; Z79.899 Other long term (current) drug therapy; Z83.3 Family history of diabetes mellitus
CPT/HCPCS: 36415; 71046; 76000; 80048; 85025; 85610; 85730; 93005; J0690; J1100; J1170; J2001; J2250; J2405; J2704; J2765; J3010; J7120